=== PATIENT | male | born 1970 | race American Indian/Alaskan Native ===

== ENCOUNTER 2021-02-12 20:17 | Emergency (ER) | payer SELFPAY ==
[2021-02-13 00:08] VITALS: BP 187/108
[2021-02-13] MEDS ORDERED: predniSONE 20 MG TAB PO ONE (01:03)
[2021-02-13] MEDS ORDERED: KETOROLAC 30 MG/1 ML INJ IM ONE (01:03)
--- NOTE | 2021-02-13 01:09 | Emergency Department Report ---
ED Back Pain/Injury HPI - General Chief Complaint: Back Pain/Injury Stated Complaint: LEG/BACK PAIN Time Seen by Provider: 02/13/21 01:01 Source: patient Limitations: No Limitations - History of Present Illness Initial Comments: This is a 50-year-old male with no past medical history who presents to ED complaining of lower back pain radiating down to his left leg initially began 2 months ago and has gotten worse in the past couple days. Patient states that he had lumbar surgery in April 2019 and afterwards gained some weight and did not go to physical therapy. Patient states that due to Covid he was out of a job so he was fine at home. Patient states that the past 6 months he started a new job that has been physical exerted. Patient states that he has been having more aggravating lumbar back pain since then. Patient denies any trauma, injuries or falls. Patient denies any incontinence, dysuria, problems defecating. MD Complaint: back pain -: Gradual, month(s) (2) Similar Symptoms Previously: Yes Place: home Radiation: left leg Severity: moderate Severity scale (0 -10): 7 Quality: burning, sharp, tingling Consistency: intermittent Improves With: immobilization Worsens With: movement, walking Associated Symptoms: denies: numbness, difficulty walking, difficulty urinating, incontinence, abdominal pain - Related Data Previous Rx's Medication Instructions Recorded Last Taken Type Cyclobenzaprine [Flexeril] 10 mg PO QHS PRN #20 tablet 02/13/21 Unknown Rx Meloxicam [Mobic] 15 mg PO DAILY #30 tablet 02/13/21 Unknown Rx Allergies Allergy/AdvReac Type Severity Reaction Status Date / Time No Known Allergies Allergy Unverified 02/13/21 00:13 ED Review of Systems ROS: Stated complaint: LEG/BACK PAIN Other details as noted in HPI Comment: All other systems reviewed and negative ED Past Medical Hx - Past Medical History Pinched Nerve Lower Back ED Back Pain Physical Exam - Exam General: Vital signs noted. No distress. Alert and acting appropriately. Back/Abdomen: No Abdominal Tenderness, No Perithoracic Tenderness, No Perilumbar Tenderness, No Sacroiliac Tenderness, No Flank Tenderness, No Straight Leg Raise Pain Neuro: Yes Normal Sensation, Yes Normal DTR's, Yes Normal Gait, No Motor Weakness ED Course Vital Signs 02/13/21 00:04 Temperature 99.3 F Pulse Rate 65 Respiratory 18 Rate Blood Pressure 187/108 O2 Sat by Pulse 94 Oximetry ED Medical Decision Making - Medical Decision Making 50-year-old male presents to ED with lumbar radiculopathy ED course: Patient received Toradol and prednisone in ED. Vital signs are normal patient is in no acute distress Discussed with patient follow-up with primary care physician. Discussed follow-up with orthopedics/neurologist. Discussed the patient and take medications as prescribed. Patient has no neurological deficit. Patient is alert and oriented 3 and understands all instructions given. Discussed drowsiness effect of Flexeril makes her drowsy and not to operate machinery while taking flexeril Critical care attestation.: If time is entered above; I have spent that time in minutes in the direct care of this critically ill patient, excluding procedure time. ED Disposition Clinical Impression: Lumbar back pain with radiculopathy affecting left lower extremity Disposition: HOME / SELF CARE / HOMELESS Is pt being admited?: No Does the pt Need Aspirin: No Condition: Stable Instructions: Neuropathic Pain, Radicular Pain Additional Instructions: Make sure to follow up with the primary care physician as discussed. Take all your medications as you've been prescribed. If you have any worsening symptoms or develop new symptoms please return to ED immediately. Prescriptions: Cyclobenzaprine [Flexeril] 10 mg PO QHS PRN #20 tablet PRN Reason: Muscle Spasm Meloxicam [Mobic] 15 mg PO DAILY #30 tablet Referrals: [facility] [Provider Group] - 3-5 Days MICHAEL CHEN MD [Staff Physician] - 3-5 Days [facility] [Provider Group] - 3-5 Days Forms: Work/School Release Form(ED) Time of Disposition: 01:14
== END 2021-02-13 02:00 | disposition home or self-care (01) ==
LOC: ED 20:17
DX: M54.16 Radiculopathy, lumbar region (principal); Z79.899 Other long term (current) drug therapy
CPT/HCPCS: 96372; 99282; J1885; J7512

== ENCOUNTER 2021-07-16 17:13 | Emergency (ER) | payer SELFPAY | END 2021-07-19 07:14 | disposition left against medical advice (07) | LOC: ED 17:13 | DX: Z00.8 Encounter for other general examination (principal); Z53.21 Procedure and treatment not carried out due to patient leaving prior to being seen by health care provider ==